=== PATIENT | female | born 1955 | race Caucasian/White ===

== ENCOUNTER 2017-05-18 10:22 | Emergency (ER) | payer MEDICARE, MEDICAID ==
[~2017-05-18] VITALS: Ht 152.4 cm; Wt 84.0 kg
[2017-05-18] MEDS ORDERED: HYDROcodone/acetaminophen 10/325mg tab PO ONE (13:20)
[2017-05-18] MEDS ORDERED: morphine 4 MG/ML inj SYRINge IV ONE (13:25)
[2017-05-18] MEDS ORDERED: normal saline 1000ML IV soln IVB ONE (13:25)
[2017-05-18] MEDS ORDERED: ondansetron/PF 4mg/2ml inj IV ONE (13:25)
[2017-05-18 14:26] VITALS: BP 101/65
== END 2017-05-18 14:31 | disposition home or self-care (01) ==
LOC: ER 10:23
DX: S70.01XA Contusion of right hip, initial encounter (principal); M16.11 Unilateral primary osteoarthritis, right hip; Z59.0 Homelessness; Z60.2 Problems related to living alone; Z56.0 Unemployment, unspecified; Z88.0 Allergy status to penicillin; Z88.5 Allergy status to narcotic agent; W18.30XA Fall on same level, unspecified, initial encounter; Y93.89 Activity, other specified; Y92.89 Other specified places as the place of occurrence of the external cause; Y99.8 Other external cause status
CPT/HCPCS: 73502; 73564; 73700; 99284

== ENCOUNTER 2017-06-02 15:16 | Emergency (ER) | payer MEDICARE, MEDICAID ==
[~2017-06-02] VITALS: Ht 152.4 cm; Wt 79.3 kg
[2017-06-02 16:01] LABS: BASOPHILS # (AUTO) 0.1 X10'3 (0-0.2); BASOPHILS % (AUTO) 0.6 % (0-1); EOSINOPHILS # (AUTO) 0.2 X10'3 (0-0.9); EOSINOPHILS % (AUTO) 1.9 % (0-6); HEMATOCRIT 35.1 % (35.0-45.0); HEMOGLOBIN 12.2 g/dl (12.0-16.0); LYMPHOCYTES # (AUTO) 2.8 X10'3 (1.1-4.8); LYMPHOCYTES % (AUTO) 34.6 % (21-51); MEAN CORPUSCULAR HEMOGLOBIN 29.4 PG (27.0-31.0); MEAN CORPUSCULAR HGB CONC 34.6 % (33.0-36.5); MEAN CORPUSCULAR VOLUME 84.8 FL (78-98); MONOCYTES # (AUTO) 0.5 X10'3 (0-0.9); MONOCYTES % (AUTO) 6.3 % (2-12); NEUTROPHILS # (AUTO) 4.6 X10'3 (1.8-7.7); NEUTROPHILS % (AUTO) 56.6 % (42-75); PLATELET COUNT 246 X10'3 (140-440); RED BLOOD COUNT 4.14 X10'6 (4.20-5.60); RED CELL DISTRIBUTION WIDTH 16.8 % (11.5-14.5); WHITE BLOOD COUNT 8.1 X10'3 (4.5-11.0)
[2017-06-02 16:10] LABS: PARTIAL THROMBOPLASTIN TIME 27 SECONDS (22-32); PROTHROMBIN TIME 10.4 SECONDS (9.0-12.0)
[2017-06-02 16:19] LABS: ALANINE AMINOTRANSFERASE 13 U/L (12-78); ALBUMIN 3.5 G/DL (3.4-5.0); ALBUMIN/GLOBULIN RATIO 0.8 (1.1-1.5); ALKALINE PHOSPHATASE 98 IU/L (46-116); ANION GAP 14 (8-16); ASPARTATE AMINO TRANSFERASE 19 U/L (10-37); BILIRUBIN,TOTAL 0.5 MG/DL (0.1-1.0); BLOOD UREA NITROGEN 12 MG/DL (7-18); BUN/CREATININE RATIO 10.6 (6.6-38.0); CALCIUM 8.8 MG/DL (8.5-10.1); CHLORIDE 106 MMOL/L (99-107); CREATININE 1.13 MG/DL (0.40-0.90); GLUCOSE 118 MG/DL (70-104); POTASSIUM 3.3 MMOL/L (3.5-5.1); SODIUM 142 MMOL/L (135-145); TOTAL CARBON DIOXIDE 22.3 MMOL/L (24-32); TOTAL PROTEIN 7.9 G/DL (6.4-8.2); eGFR 49 ML/MIN
[2017-06-02 19:02] VITALS: BP 128/73
[2017-06-02] MEDS ORDERED: FLUC100T8 PO (20:07)
== END 2017-06-02 20:15 | disposition left against medical advice (07) ==
LOC: ER 15:16
DX: B37.0 Candidal stomatitis (principal); R07.89 Other chest pain; M19.90 Unspecified osteoarthritis, unspecified site; Z88.5 Allergy status to narcotic agent; Z88.0 Allergy status to penicillin; Z79.899 Other long term (current) drug therapy; Z56.0 Unemployment, unspecified; Z59.0 Homelessness; Z60.2 Problems related to living alone
CPT/HCPCS: 36415; 71045; 80053; 84484; 85025; 85610; 85730; 87081; 87880; 93005; 99285

== ENCOUNTER 2017-06-08 11:28 | Emergency (ER) | payer MEDICARE, MEDICAID ==
[~2017-06-08 11:28] MED LIST: FLUC100T8 PO
[2017-06-08] MEDS ORDERED: normal saline 1000ML IV soln IVB ONE (11:35)
[2017-06-08] MEDS ORDERED: morphine 4 MG/ML inj SYRINge IV ONE (11:35)
[2017-06-08] MEDS ORDERED: LORazepam 2 mg/ml vial IV ONE (11:35)
[2017-06-08 11:59] LABS: PROTHROMBIN TIME 10.7 SECONDS (9.0-12.0)
[2017-06-08 12:04] LABS: ALANINE AMINOTRANSFERASE 12 U/L (12-78); ALBUMIN 3.3 G/DL (3.4-5.0); ALBUMIN/GLOBULIN RATIO 0.8 (1.1-1.5); ALKALINE PHOSPHATASE 88 IU/L (46-116); ANION GAP 17 (8-16); ASPARTATE AMINO TRANSFERASE 19 U/L (10-37); BILIRUBIN,TOTAL 0.4 MG/DL (0.1-1.0); BLOOD UREA NITROGEN 6 MG/DL (7-18); BUN/CREATININE RATIO 5.6 (6.6-38.0); CALCIUM 8.6 MG/DL (8.5-10.1); CHLORIDE 105 MMOL/L (99-107); CREATININE 1.08 MG/DL (0.40-0.90); ETHANOL < 0.010 GM/DL (0.0-0.010); GLUCOSE 122 MG/DL (70-104); POTASSIUM 3.4 MMOL/L (3.5-5.1); SODIUM 142 MMOL/L (135-145); TOTAL CARBON DIOXIDE 19.9 MMOL/L (24-32); TOTAL PROTEIN 7.5 G/DL (6.4-8.2); eGFR 52 ML/MIN
[2017-06-08 12:05] LABS: BASOPHILS % (AUTO) 0.3 % (0-1); EOSINOPHILS # (AUTO) 0.1 X10'3 (0-0.9); EOSINOPHILS % (AUTO) 0.5 % (0-6); HEMATOCRIT 33.9 % (35.0-45.0); HEMOGLOBIN 11.6 g/dl (12.0-16.0); LYMPHOCYTES # (AUTO) 4.3 X10'3 (1.1-4.8); LYMPHOCYTES % (AUTO) 38.3 % (21-51); MEAN CORPUSCULAR HEMOGLOBIN 29.2 PG (27.0-31.0); MEAN CORPUSCULAR HGB CONC 34.2 % (33.0-36.5); MEAN CORPUSCULAR VOLUME 85.3 FL (78-98); MEAN PLATELET VOLUME 6.9 FL (7.4-10.4); MONOCYTES # (AUTO) 0.7 X10'3 (0-0.9); MONOCYTES % (AUTO) 6.5 % (2-12); NEUTROPHILS # (AUTO) 6.1 X10'3 (1.8-7.7); NEUTROPHILS % (AUTO) 54.4 % (42-75); PLATELET COUNT 265 X10'3 (140-440); RED BLOOD COUNT 3.98 X10'6 (4.20-5.60); RED CELL DISTRIBUTION WIDTH 16.8 % (11.5-14.5); WHITE BLOOD COUNT 11.2 X10'3 (4.5-11.0)
[2017-06-08] MEDS ORDERED: LIDOcaine 1% 30ml preserv. free vial IJ ONE (12:35)
[2017-06-08] MEDS ORDERED: TETanus/Pertussis (Acell)/Diphther VAC/PF (Tdap-Adult) 0.5ml syringe IM ONE (12:35)
[2017-06-08 12:48] LABS: CLARITY,URINE CLEAR (Clear); COLOR,URINE YELLOW (Yellow); GLUCOSE, URINE NEGATIVE (Neg); KETONES,URINE NEGATIVE (Neg); LEUKOCYTE ESTERASE ,URINE NEGATIVE (Neg); NITRITES, URINE NEGATIVE (Neg); OCCULT BLOOD,URINE NEGATIVE (Neg); PROTEIN,URINE NEGATIVE (Neg); UROBILINOGEN,URINE 0.2 E.U/dL (0.2-1.0)
[2017-06-08 12:51] LABS: URINE AMPHETAMINE SCREEN NEGATIVE (Neg); URINE BARBITUATE SCREEN NEGATIVE (Neg); URINE BENZODIAZEPINES SCREEN NEGATIVE (Neg); URINE CANNABINOID SCREEN NEGATIVE (Neg); URINE COCAINE SCREEN NEGATIVE (Neg); URINE METHADONE SCREEN NEGATIVE (Neg); URINE OPIATE SCREEN POSITIVE (Neg); URINE PHENCYCLIDINE SCREEN NEGATIVE (Neg)
[2017-06-08 12:56] LABS: UA COLLECTION TYPE NON-SPECIFIED
[2017-06-08] MEDS ORDERED: KEP500T PO (13:16)
[2017-06-08] MEDS ORDERED: CITA20TA11 PO (13:16)
[2017-06-08] MEDS ORDERED: ZOLP10TA5 PO (13:16)
[2017-06-08] MEDS ORDERED: NAPR-56 PO (13:16)
[2017-06-08] MEDS ORDERED: CARV-50 PO (13:16)
[2017-06-08] MEDS ORDERED: HYDR-3686 PO (13:16)
[2017-06-08] MEDS ORDERED: ASPI-1053 PO (13:19)
[2017-06-08] MEDS ORDERED: NITR0.4T51 SL (13:19)
[2017-06-08] MEDS ORDERED: levetiracetam inj 1,000 MG in normal saline 100ml IV soln 90 ML IV SCH (13:20)
[2017-06-08 15:48] VITALS: BP 116/90
== END 2017-06-08 15:50 | disposition home or self-care (01) ==
LOC: EDBD 11:28 → ER 11:29
DX: F07.81 Postconcussional syndrome (principal); G40.909 Epilepsy, unspecified, not intractable, without status epilepticus; S01.21XA Laceration without foreign body of nose, initial encounter; M19.90 Unspecified osteoarthritis, unspecified site; Z88.6 Allergy status to analgesic agent; Z88.0 Allergy status to penicillin; Z79.82 Long term (current) use of aspirin; W01.0XXA Fall on same level from slipping, tripping and stumbling without subsequent striking against object, initial encounter; Y93.89 Activity, other specified; Y92.89 Other specified places as the place of occurrence of the external cause; Y99.8 Other external cause status
CPT/HCPCS: 12011; 36415; 70450; 70486; 71045; 73502; 73560; 80053; 80305; 80320; 81003; 82948; 85025; 85610; 90471; 90715; 93005; 96361; 96365; 96375; 99291; A4353; A6449; J1953; J2060; J2270; J3490; J7030

== ENCOUNTER 2017-06-14 08:53 | Emergency (ER) | payer MEDICARE, MEDICAID ==
[~2017-06-14] VITALS: Ht 152.4 cm; Wt 77.0 kg
[~2017-06-14 08:53] MED LIST changes: +ASPI-1053 PO; +CARV-50 PO; +CITA20TA11 PO; -FLUC100T8 PO; +HYDR-3686 PO; +KEP500T PO; +NAPR-56 PO; +NITR0.4T51 SL; +ZOLP10TA5 PO
[2017-06-14 09:05] VITALS: BP 186/103
== END 2017-06-14 09:56 | disposition home or self-care (01) ==
LOC: ER 08:54
DX: S01.21XD Laceration without foreign body of nose, subsequent encounter (principal); Z48.02 Encounter for removal of sutures; M19.90 Unspecified osteoarthritis, unspecified site; Z88.0 Allergy status to penicillin; Z88.5 Allergy status to narcotic agent; Z79.82 Long term (current) use of aspirin; Z79.899 Other long term (current) drug therapy; Z56.0 Unemployment, unspecified; Z59.0 Homelessness; Z60.2 Problems related to living alone; W01.0XXD Fall on same level from slipping, tripping and stumbling without subsequent striking against object, subsequent encounter
CPT/HCPCS: 99284

== ENCOUNTER 2017-07-10 14:04 | Inpatient (IN) | payer MEDICARE, MEDICAID ==
[~2017-07-10] VITALS: Ht 162.6 cm; Wt 77.2 kg
[~2017-07-10 14:04] MED LIST changes: +CITA-278 PO; -CITA20TA11 PO
[2017-07-10] MEDS ORDERED: normal saline 1000ml 1,000 ML IV ONE (14:09)
[2017-07-10] MEDS ORDERED: nitroGLYCERIN 0.4mg/hour patch TD ONE (14:10)
[2017-07-10] MEDS ORDERED: normal saline 1000ML IV soln IVB ONE ×2 (14:10→14:15)
[2017-07-10] MEDS ORDERED: ondansetron/PF 4mg/2ml inj IV ONE (14:15)
[2017-07-10 14:38] LABS: BASOPHILS % (AUTO) 0.3 % (0-1); EOSINOPHILS # (AUTO) 0.2 X10'3 (0-0.9); EOSINOPHILS % (AUTO) 2.5 % (0-6); HEMATOCRIT 31.3 % (35.0-45.0); HEMOGLOBIN 10.7 g/dl (12.0-16.0); LYMPHOCYTES # (AUTO) 2.3 X10'3 (1.1-4.8); LYMPHOCYTES % (AUTO) 26.4 % (21-51); MEAN CORPUSCULAR HGB CONC 34.1 % (33.0-36.5); MEAN CORPUSCULAR VOLUME 85.2 FL (78-98); MEAN PLATELET VOLUME 6.7 FL (7.4-10.4); MONOCYTES # (AUTO) 0.6 X10'3 (0-0.9); MONOCYTES % (AUTO) 6.8 % (2-12); NEUTROPHILS # (AUTO) 5.6 X10'3 (1.8-7.7); PLATELET COUNT 296 X10'3 (140-440); RED BLOOD COUNT 3.67 X10'6 (4.20-5.60); RED CELL DISTRIBUTION WIDTH 16.4 % (11.5-14.5); WHITE BLOOD COUNT 8.7 X10'3 (4.5-11.0)
[2017-07-10 14:50] LABS: PARTIAL THROMBOPLASTIN TIME 27 SECONDS (22-32); PROTHROMBIN TIME 10.1 SECONDS (9.0-12.0)
[2017-07-10 14:55] LABS: ALANINE AMINOTRANSFERASE 13 U/L (12-78); ALBUMIN 3.1 G/DL (3.4-5.0); ALBUMIN/GLOBULIN RATIO 0.8 (1.1-1.5); ALKALINE PHOSPHATASE 114 IU/L (46-116); ANION GAP 10 (8-16); ASPARTATE AMINO TRANSFERASE 21 U/L (10-37); BILIRUBIN,TOTAL 0.4 MG/DL (0.1-1.0); BLOOD UREA NITROGEN 17 MG/DL (7-18); BUN/CREATININE RATIO 13.6 (6.6-38.0); CALCIUM 8.4 MG/DL (8.5-10.1); CHLORIDE 106 MMOL/L (99-107); CREATININE 1.25 MG/DL (0.40-0.90); GLUCOSE 110 MG/DL (70-104); POTASSIUM 3.6 MMOL/L (3.5-5.1); SODIUM 139 MMOL/L (135-145); TOTAL CARBON DIOXIDE 23.3 MMOL/L (24-32); TOTAL PROTEIN 7.2 G/DL (6.4-8.2); eGFR 44 ML/MIN
[2017-07-10 15:01] LABS: ETHANOL < 0.010 GM/DL (0.0-0.010); LIPASE 114 U/L (73-393)
[2017-07-10 15:06] LABS: CLARITY,URINE SLIGHTLY CLOUDY (Clear); COLOR,URINE YELLOW (Yellow); GLUCOSE, URINE NEGATIVE (Neg); KETONES,URINE TRACE mg/dl (Neg); LEUKOCYTE ESTERASE ,URINE SMALL (Neg); NITRITES, URINE POSITIVE (Neg); OCCULT BLOOD,URINE SMALL (Neg); PH,URINE 5.5 (4.8-8.0); PROTEIN,URINE 30 mg/dl (Neg)
[2017-07-10 15:12] LABS: UA COLLECTION TYPE CLN CATCH MIDSTREAM
[2017-07-10 15:14] LABS: AMORPHOUS URATES 1+; BACTERIA,URINE 4+ /HPF (Neg); MUCUS STRANDS FEW /LPF (Neg); RBC,URINE 0-2 /HPF (0-2); SQUAMOUS EPITHELIAL CELL,UR MODERATE /LPF (FEW)
[2017-07-10 15:15] LABS: CAL OXALATE CRYSTALS 2+ /HPF (NEGATIVE)
[2017-07-10] MEDS ORDERED: mag hydrox/Alum hydrox/simeth 30ml oral suspension PO PRN (15:30)
[2017-07-10] MEDS ORDERED: nitroGLYCERIN 0.4mg SUBLingual tab SL PRN (15:30)
[2017-07-10] MEDS ORDERED: morphine 4 MG/ML inj SYRINge IV PRN ×2 (15:30)
[2017-07-10] MEDS ORDERED: acetaminophen 325mg tablet PO PRN (15:30)
[2017-07-10] MEDS ORDERED: ondansetron/PF 4mg/2ml inj IV PRN (15:30)
[2017-07-10] MEDS ORDERED: magnesium hydroxide 30ml (MOM) UD suspension PO PRN (15:30)
[2017-07-10] MEDS: levoFLOXACIN-Levaquin 500mg/D5 100 ML IV SCH (15:47)
[2017-07-10] MEDS: normal saline 1000ml 1,000 ML IV SCH (15:48)
[2017-07-10 18:00] VITALS: BP 142/70
[2017-07-10] MEDS: carVEDilol 3.125mg tablet PO SCH (19:07)
[2017-07-10] MEDS: heparin, porcine 5000 units/ml vial SQ SCH (19:08)
[2017-07-10] MEDS ORDERED: temazepam 15mg capsule PO PRN (20:10)
[2017-07-10 23:00] VITALS: BP 152/68
[2017-07-11] MEDS: normal saline 1000ml 1,000 ML IV SCH ×2 (01:41→11:28)
[2017-07-11 03:00] VITALS: BP 146/56
[2017-07-11 03:19] LABS: BASOPHILS % (AUTO) 0.4 % (0-1); EOSINOPHILS # (AUTO) 0.3 X10'3 (0-0.9); EOSINOPHILS % (AUTO) 2.7 % (0-6); HEMATOCRIT 29.2 % (35.0-45.0); HEMOGLOBIN 9.8 g/dl (12.0-16.0); LYMPHOCYTES # (AUTO) 1.9 X10'3 (1.1-4.8); LYMPHOCYTES % (AUTO) 20.4 % (21-51); MEAN CORPUSCULAR HEMOGLOBIN 28.9 PG (27.0-31.0); MEAN CORPUSCULAR HGB CONC 33.4 % (33.0-36.5); MEAN CORPUSCULAR VOLUME 86.4 FL (78-98); MEAN PLATELET VOLUME 6.7 FL (7.4-10.4); MONOCYTES # (AUTO) 0.7 X10'3 (0-0.9); MONOCYTES % (AUTO) 7.2 % (2-12); NEUTROPHILS # (AUTO) 6.4 X10'3 (1.8-7.7); NEUTROPHILS % (AUTO) 69.3 % (42-75); PLATELET COUNT 248 X10'3 (140-440); RED BLOOD COUNT 3.38 X10'6 (4.20-5.60); RED CELL DISTRIBUTION WIDTH 16.6 % (11.5-14.5); WHITE BLOOD COUNT 9.3 X10'3 (4.5-11.0)
[2017-07-11 05:30] VITALS: BP 164/70
[2017-07-11 06:26] LABS: ALBUMIN 2.7 G/DL (3.4-5.0); ANION GAP 11 (8-16); BLOOD UREA NITROGEN 11 MG/DL (7-18); BUN/CREATININE RATIO 12.1 (6.6-38.0); CHLORIDE 107 MMOL/L (99-107); CREATININE 0.91 MG/DL (0.40-0.90); GLUCOSE 85 MG/DL (70-104); SODIUM 141 MMOL/L (135-145); TOTAL CARBON DIOXIDE 22.9 MMOL/L (24-32); eGFR 63 ML/MIN
[2017-07-11] MEDS ORDERED: aspirin 81mg tablet.DR PO SCH (08:00)
[2017-07-11] MEDS ORDERED: atorvastatin 20mg tablet PO SCH (08:00)
[2017-07-11] MEDS ORDERED: citalopram 20mg tablet PO SCH (08:20)
[2017-07-11] MEDS ORDERED: carVEDilol 12.5mg tablet PO SCH (08:20)
[2017-07-11] MEDS ORDERED: nitroGLYCERIN 0.4mg SUBLingual tab SL PRN (08:20)
[2017-07-11] MEDS: levoFLOXACIN-Levaquin 500mg/D5 100 ML IV SCH (08:26)
[2017-07-11] MEDS: carVEDilol 3.125mg tablet PO SCH (08:26)
[2017-07-11] MEDS: heparin, porcine 5000 units/ml vial SQ SCH (08:26)
[2017-07-11] MEDS ORDERED: zolpidem 5mg tablet PO PRN (08:30)
[2017-07-11] MEDS ORDERED: levetiracetam 250mg tablet PO SCH (09:00)
[2017-07-11 10:09] LABS: H PYLORI ANTIBODY NEGATIVE (Neg)
[2017-07-11 11:00] VITALS: BP 150/58
[2017-07-11] MEDS ORDERED: LEVO500T2 PO (11:31)
[2017-07-11] MEDS ORDERED: MUPI22OI30 TOP (11:31)
[2017-07-11] MEDS ORDERED: PANT-47 PO (11:33)
[2017-07-11] MEDS ORDERED: hydrOXYzine 25 MG tablet PO SCH (20:00)
[2017-07-12] MEDS ORDERED: aspirin 81mg tab.chew PO SCH (08:00)
== END 2017-07-11 13:05 | disposition home or self-care (01) | DRG 391 ==
LOC: ER 14:04 → ED HOLD 15:28 → PCU 3S 17:25
PROVIDERS: ADMIT Family Medicine; ATTEND Family Medicine
DX: K29.70 Gastritis, unspecified, without bleeding (principal); E43 Unspecified severe protein-calorie malnutrition; N17.9 Acute kidney failure, unspecified; N39.0 Urinary tract infection, site not specified; D64.9 Anemia, unspecified; E86.0 Dehydration; M19.90 Unspecified osteoarthritis, unspecified site; F32.9 Major depressive disorder, single episode, unspecified; G40.909 Epilepsy, unspecified, not intractable, without status epilepticus; I12.9 Hypertensive chronic kidney disease with stage 1 through stage 4 chronic kidney disease, or unspecified chronic kidney disease; I25.10 Atherosclerotic heart disease of native coronary artery without angina pectoris; J44.9 Chronic obstructive pulmonary disease, unspecified; L01.00 Impetigo, unspecified; Z90.710 Acquired absence of both cervix and uterus; I25.2 Old myocardial infarction; Z95.0 Presence of cardiac pacemaker; Z59.0 Homelessness; Z88.0 Allergy status to penicillin; Z88.5 Allergy status to narcotic agent; N18.3 Chronic kidney disease, stage 3 (moderate)
CPT/HCPCS: 36415; 71045; 80048; 80053; 80320; 81001; 83690; 83735; 83880; 84484; 85025; 85610; 85730; 86677; 87070; 87077; 87088; 87186; 93005; 93306; 96361; 96374; 99285; J1644; J1956; J2270; J2405; J7030

== ENCOUNTER 2017-08-31 11:46 | Emergency (ER) | payer MEDICARE, MEDICAID ==
[~2017-08-31] VITALS: Ht 162.6 cm; Wt 75.0 kg
[~2017-08-31 11:46] MED LIST changes: -NAPR-56 PO; +PANT-47 PO
[2017-08-31] MEDS ORDERED: nitroGLYCERIN 0.4mg SUBLingual tab SL PRN (11:55)
[2017-08-31] MEDS ORDERED: morphine 4 MG/ML inj SYRINge IV ONE (11:55)
[2017-08-31 12:13] LABS: BASOPHILS # (AUTO) 0.1 X10'3 (0-0.2); BASOPHILS % (AUTO) 0.7 % (0-1); EOSINOPHILS # (AUTO) 0.4 X10'3 (0-0.9); EOSINOPHILS % (AUTO) 4.1 % (0-6); HEMATOCRIT 30.6 % (35.0-45.0); HEMOGLOBIN 10.3 g/dl (12.0-16.0); LYMPHOCYTES % (AUTO) 20.7 % (21-51); MEAN CORPUSCULAR HEMOGLOBIN 28.5 PG (27.0-31.0); MEAN CORPUSCULAR HGB CONC 33.6 % (33.0-36.5); MEAN PLATELET VOLUME 6.6 FL (7.4-10.4); MONOCYTES # (AUTO) 0.5 X10'3 (0-0.9); MONOCYTES % (AUTO) 5.6 % (2-12); NEUTROPHILS # (AUTO) 6.6 X10'3 (1.8-7.7); NEUTROPHILS % (AUTO) 68.9 % (42-75); PLATELET COUNT 373 X10'3 (140-440); RED CELL DISTRIBUTION WIDTH 14.5 % (11.5-14.5); WHITE BLOOD COUNT 9.6 X10'3 (4.5-11.0)
[2017-08-31 12:31] LABS: ALANINE AMINOTRANSFERASE 16 U/L (12-78); ALBUMIN/GLOBULIN RATIO 0.7 (1.1-1.5); ALKALINE PHOSPHATASE 106 IU/L (46-116); ANION GAP 7 (8-16); ASPARTATE AMINO TRANSFERASE 23 U/L (10-37); BILIRUBIN,TOTAL 0.4 MG/DL (0.1-1.0); BLOOD UREA NITROGEN 9 MG/DL (7-18); BUN/CREATININE RATIO 8.3 (6.6-38.0); CALCIUM 8.7 MG/DL (8.5-10.1); CHLORIDE 103 MMOL/L (99-107); CREATININE 1.09 MG/DL (0.40-0.90); GLUCOSE 96 MG/DL (70-104); POTASSIUM 3.7 MMOL/L (3.5-5.1); SODIUM 135 MMOL/L (135-145); TOTAL CARBON DIOXIDE 24.8 MMOL/L (24-32); TOTAL PROTEIN 7.4 G/DL (6.4-8.2); eGFR 51 ML/MIN
[2017-08-31 12:38] LABS: CREATINE KINASE 20 U/L (26-192)
[2017-08-31 13:35] VITALS: BP 131/69
== END 2017-08-31 14:00 | disposition home or self-care (01) ==
LOC: ER 11:46
DX: G40.909 Epilepsy, unspecified, not intractable, without status epilepticus (principal); R07.9 Chest pain, unspecified; M25.551 Pain in right hip; M16.11 Unilateral primary osteoarthritis, right hip; I10 Essential (primary) hypertension; J44.9 Chronic obstructive pulmonary disease, unspecified; M19.90 Unspecified osteoarthritis, unspecified site; I25.2 Old myocardial infarction; I25.10 Atherosclerotic heart disease of native coronary artery without angina pectoris; Z95.0 Presence of cardiac pacemaker; Z88.0 Allergy status to penicillin; Z88.5 Allergy status to narcotic agent; Z79.82 Long term (current) use of aspirin; Z79.899 Other long term (current) drug therapy; Z56.0 Unemployment, unspecified; Z60.2 Problems related to living alone
CPT/HCPCS: 36415; 71045; 72170; 73502; 80053; 82550; 83880; 84484; 85025; 93005; 96374; 99285; J2270

== ENCOUNTER 2017-10-28 16:27 | Inpatient (IN) | payer MEDICARE, MEDICAID ==
[~2017-10-28] VITALS: Ht 152.4 cm; Wt 65.0 kg
[2017-10-28 16:53] LABS: BASOPHILS % (AUTO) 0.2 % (0-1); EOSINOPHILS # (AUTO) 0.3 X10'3 (0-0.9); EOSINOPHILS % (AUTO) 3.6 % (0-6); HEMATOCRIT 32.1 % (35.0-45.0); HEMOGLOBIN 10.6 g/dl (12.0-16.0); LYMPHOCYTES # (AUTO) 1.5 X10'3 (1.1-4.8); LYMPHOCYTES % (AUTO) 18.6 % (21-51); MEAN CORPUSCULAR HEMOGLOBIN 27.6 PG (27.0-31.0); MEAN CORPUSCULAR HGB CONC 33.1 % (33.0-36.5); MEAN CORPUSCULAR VOLUME 83.4 FL (78-98); MEAN PLATELET VOLUME 6.8 FL (7.4-10.4); MONOCYTES # (AUTO) 0.5 X10'3 (0-0.9); MONOCYTES % (AUTO) 5.8 % (2-12); NEUTROPHILS # (AUTO) 5.7 X10'3 (1.8-7.7); NEUTROPHILS % (AUTO) 71.8 % (42-75); PLATELET COUNT 285 X10'3 (140-440); RED BLOOD COUNT 3.85 X10'6 (4.20-5.60); RED CELL DISTRIBUTION WIDTH 15.7 % (11.5-14.5)
[2017-10-28 17:41] LABS: PARTIAL THROMBOPLASTIN TIME 26 SECONDS (22-32); PROTHROMBIN TIME 10.7 SECONDS (9.0-12.0)
[2017-10-28 17:46] LABS: ALANINE AMINOTRANSFERASE 7 U/L (12-78); ALBUMIN 2.8 G/DL (3.4-5.0); ALBUMIN/GLOBULIN RATIO 0.7 (1.1-1.5); ALKALINE PHOSPHATASE 96 IU/L (46-116); ANION GAP 15 (8-16); ASPARTATE AMINO TRANSFERASE 13 U/L (10-37); BILIRUBIN,TOTAL 0.5 MG/DL (0.1-1.0); BLOOD UREA NITROGEN 8 MG/DL (7-18); CALCIUM 8.1 MG/DL (8.5-10.1); CHLORIDE 100 MMOL/L (99-107); CREATININE 1.14 MG/DL (0.40-0.90); GLUCOSE 106 MG/DL (70-104); SODIUM 136 MMOL/L (135-145); TOTAL CARBON DIOXIDE 20.9 MMOL/L (24-32); eGFR 49 ML/MIN
[2017-10-28 17:51] LABS: POTASSIUM 2.5 MMOL/L (3.5-5.1)
[2017-10-28] MEDS ORDERED: normal saline 1000ML IV soln IVB ONE (18:10)
[2017-10-28] MEDS ORDERED: morphine 4 MG/ML inj SYRINge IV PRN (18:10)
[2017-10-28] MEDS ORDERED: ondansetron/PF 4mg/2ml inj IV ONE (18:10)
[2017-10-28] MEDS: potassium 10mEq/100ml NS w/LIDOcaine (10mg/bag) IV SCH ×2 (18:28→19:46)
[2017-10-28] MEDS ORDERED: DIPH25CA83 PO (18:38)
[2017-10-28] MEDS ORDERED: NYST1000 PO (18:45)
[2017-10-28] MEDS ORDERED: HYDROmorphone 1 mg/ml syringe IV PRN ×2 (19:50)
[2017-10-28] MEDS ORDERED: potassium Cl 40MEQ/NS 500ml 500 ML IV PRN ×2 (19:50)
[2017-10-28] MEDS ORDERED: diphenhydrAMINE 25mg capsule PO PRN (19:50)
[2017-10-28] MEDS ORDERED: metoclopramide 5 mg/ml inj IV PRN (19:50)
[2017-10-28] MEDS ORDERED: magnesium hydroxide 30ml (MOM) UD suspension PO PRN (19:50)
[2017-10-28] MEDS ORDERED: mag hydrox/Alum hydrox/simeth 30ml oral suspension PO PRN (19:50)
[2017-10-28] MEDS ORDERED: bisacodyl 10mg suppository rectal RC PRN (19:50)
[2017-10-28] MEDS ORDERED: HYDROcodone/acetaminophen 5mg/325mg tablet PO PRN (19:50)
[2017-10-28] MEDS ORDERED: diphenhydrAMINE 50 mg/ml inj IV PRN (19:50)
[2017-10-28] MEDS ORDERED: acetaminophen 650mg rectal suppository RC PRN (19:50)
[2017-10-28] MEDS ORDERED: morphine 2 MG/ML inj. syringe IV PRN (19:50)
[2017-10-28] MEDS ORDERED: nitroGLYCERIN 0.4mg SUBLingual tab SL PRN ×2 (19:50→19:55)
[2017-10-28] MEDS ORDERED: acetaminophen 325mg tablet PO PRN ×2 (19:50)
[2017-10-28] MEDS ORDERED: potassium Cl 20 mEq SR tablet PO PRN (19:50)
[2017-10-28] MEDS ORDERED: metoprolol tartrate 1mg/ml inj IV PRN (19:55)
[2017-10-28] MEDS ORDERED: regadenoson 0.4mg/5ml syringe IV PRN (19:55)
[2017-10-28] MEDS ORDERED: CAFFEINE CITRATE 60 MG/3 ML injection vial IV PRN (19:55)
[2017-10-28] MEDS ORDERED: non-formulary drug (Levetiracetam (Keppra) 1 TAB) PO SCH (20:00)
[2017-10-28] MEDS: docusate sod 100mg capsule PO SCH (20:00)
[2017-10-28 20:05] LABS: D-DIMER 0.57 MG/L FEU (0-0.50)
[2017-10-28 20:13] LABS: HEMOGLOBIN A1C 5.4 % (4.5-6.2)
[2017-10-28 20:22] LABS: CREATINE KINASE 23 U/L (26-192); LIPASE 75 U/L (73-393); MAGNESIUM 1.7 MG/DL (1.5-2.4); PHOSPHORUS 3.5 MG/DL (2.3-4.5)
[2017-10-28] MEDS ORDERED: levetiracetam 250mg tablet PO ONE (20:35)
[2017-10-28] MEDS: heparin, porcine 5000 units/ml vial SQ SCH (20:44)
[2017-10-28] MEDS: famotidine 20mg tablet PO SCH (20:45)
[2017-10-28] MEDS: hydrOXYzine 25 MG tablet PO SCH (20:45)
[2017-10-28 21:00] VITALS: BP 147/64
[2017-10-28] MEDS ORDERED: temazepam 15mg capsule PO PRN (21:00)
[2017-10-28] MEDS ORDERED: lidocaine viscous (21:55)
[2017-10-28] MEDS: potassium Cl 20mEq in NS 1,000 ML IV SCH (22:48)
[2017-10-28] MEDS: diphenhydrAMINE 25mg capsule PO SCH (22:48)
[2017-10-29] VITALS (10 sets, daily range): BP systolic 106–142; BP diastolic 49–73
[2017-10-29] MEDS: morphine 2 MG/ML inj. syringe IV PRN ×2 (01:03→05:35)
[2017-10-29] MEDS: potassium Cl 20mEq in NS 1,000 ML IV SCH ×2 (05:50→15:24)
[2017-10-29 07:31] LABS: BASOPHILS % (AUTO) 0.5 % (0-1); EOSINOPHILS # (AUTO) 0.2 X10'3 (0-0.9); EOSINOPHILS % (AUTO) 2.7 % (0-6); HEMATOCRIT 30.4 % (35.0-45.0); HEMOGLOBIN 10.2 g/dl (12.0-16.0); LYMPHOCYTES # (AUTO) 1.4 X10'3 (1.1-4.8); LYMPHOCYTES % (AUTO) 22.5 % (21-51); MEAN CORPUSCULAR HGB CONC 33.5 % (33.0-36.5); MEAN CORPUSCULAR VOLUME 83.4 FL (78-98); MEAN PLATELET VOLUME 7.1 FL (7.4-10.4); MONOCYTES # (AUTO) 0.6 X10'3 (0-0.9); MONOCYTES % (AUTO) 9.1 % (2-12); NEUTROPHILS # (AUTO) 4.1 X10'3 (1.8-7.7); NEUTROPHILS % (AUTO) 65.2 % (42-75); PLATELET COUNT 224 X10'3 (140-440); RED BLOOD COUNT 3.64 X10'6 (4.20-5.60); RED CELL DISTRIBUTION WIDTH 15.9 % (11.5-14.5); WHITE BLOOD COUNT 6.3 X10'3 (4.5-11.0)
[2017-10-29] MEDS: K and/or MAG REPLACEMENT MC SCH (08:00)
[2017-10-29] MEDS: nitroGLYCERIN 0.1mg/hour patch TD SCH (08:00)
[2017-10-29 08:05] LABS: ALANINE AMINOTRANSFERASE 6 U/L (12-78); ALBUMIN 2.5 G/DL (3.4-5.0); ALBUMIN/GLOBULIN RATIO 0.7 (1.1-1.5); ALKALINE PHOSPHATASE 89 IU/L (46-116); ANION GAP 11 (8-16); ASPARTATE AMINO TRANSFERASE 17 U/L (10-37); BILIRUBIN,TOTAL 0.4 MG/DL (0.1-1.0); BLOOD UREA NITROGEN 7 MG/DL (7-18); BUN/CREATININE RATIO 7.1 (6.6-38.0); CALCIUM 7.6 MG/DL (8.5-10.1); CHLORIDE 105 MMOL/L (99-107); CHOLESTEROL 131 MG/DL (0-200); CREATININE 0.99 MG/DL (0.40-0.90); GLUCOSE 79 MG/DL (70-104); HDL CHOLESTEROL 26 MG/DL (35-60); LDL CHOLESTEROL 75 MG/DL (50-100); SODIUM 140 MMOL/L (135-145); TOTAL CARBON DIOXIDE 23.8 MMOL/L (24-32); TOTAL PROTEIN 6.3 G/DL (6.4-8.2); TRIGLYCERIDES 154 MG/DL (20-135); eGFR 57 ML/MIN
[2017-10-29] MEDS: heparin, porcine 5000 units/ml vial SQ SCH ×2 (08:19→20:44)
[2017-10-29] MEDS: docusate sod 100mg capsule PO SCH ×2 (08:20→20:00)
[2017-10-29] MEDS: citalopram 20mg tablet PO SCH (08:20)
[2017-10-29] MEDS: ondansetron/PF 4mg/2ml inj IV PRN ×2 (08:20→14:58)
[2017-10-29] MEDS: potassium Cl 20 mEq SR tablet PO PRN ×3 (08:21→20:56)
[2017-10-29] MEDS: aspirin 81mg tab.chew PO SCH (08:21)
[2017-10-29] MEDS: levetiracetam 250mg tablet PO SCH ×2 (08:21→20:44)
[2017-10-29] MEDS: hydrOXYzine 25 MG tablet PO SCH ×2 (08:22→20:45)
[2017-10-29] MEDS: famotidine 20mg tablet PO SCH ×2 (08:22→20:45)
[2017-10-29] MEDS ORDERED: regadenoson 0.4mg/5ml syringe IV ONE (12:00)
[2017-10-29] MEDS: carvedilol 6.25mg tablet PO SCH (15:24)
[2017-10-29] MEDS: HYDROcodone/acetaminophen 10/325mg tab PO PRN ×2 (15:29→20:45)
[2017-10-29] MEDS: diphenhydrAMINE 25mg capsule PO SCH (20:46)
[2017-10-30] MEDS: potassium Cl 20mEq in NS 1,000 ML IV SCH ×2 (01:50→11:50)
[2017-10-30 01:56] LABS: ALANINE AMINOTRANSFERASE 8 U/L (12-78); ALBUMIN 2.3 G/DL (3.4-5.0); ALBUMIN/GLOBULIN RATIO 0.6 (1.1-1.5); ALKALINE PHOSPHATASE 86 IU/L (46-116); ANION GAP 10 (8-16); ASPARTATE AMINO TRANSFERASE 20 U/L (10-37); BILIRUBIN,TOTAL 0.3 MG/DL (0.1-1.0); BLOOD UREA NITROGEN 10 MG/DL (7-18); BUN/CREATININE RATIO 9.8 (6.6-38.0); CALCIUM 7.4 MG/DL (8.5-10.1); CHLORIDE 106 MMOL/L (99-107); CREATININE 1.02 MG/DL (0.40-0.90); GLUCOSE 85 MG/DL (70-104); POTASSIUM 4.3 MMOL/L (3.5-5.1); SODIUM 140 MMOL/L (135-145); TOTAL CARBON DIOXIDE 24.1 MMOL/L (24-32); eGFR 55 ML/MIN
[2017-10-30 02:19] LABS: BASOPHILS % (AUTO) 0.1 % (0-1); EOSINOPHILS # (AUTO) 0.3 X10'3 (0-0.9); EOSINOPHILS % (AUTO) 4.9 % (0-6); HEMATOCRIT 30.2 % (35.0-45.0); HEMOGLOBIN 9.9 g/dl (12.0-16.0); LYMPHOCYTES # (AUTO) 1.5 X10'3 (1.1-4.8); LYMPHOCYTES % (AUTO) 26.9 % (21-51); MEAN CORPUSCULAR HEMOGLOBIN 27.6 PG (27.0-31.0); MEAN CORPUSCULAR HGB CONC 32.7 % (33.0-36.5); MEAN CORPUSCULAR VOLUME 84.4 FL (78-98); MEAN PLATELET VOLUME 7.3 FL (7.4-10.4); MONOCYTES # (AUTO) 0.4 X10'3 (0-0.9); MONOCYTES % (AUTO) 8.1 % (2-12); NEUTROPHILS # (AUTO) 3.3 X10'3 (1.8-7.7); PLATELET COUNT 254 X10'3 (140-440); RED BLOOD COUNT 3.58 X10'6 (4.20-5.60); WHITE BLOOD COUNT 5.5 X10'3 (4.5-11.0)
[2017-10-30 02:21] LABS: CLARITY,URINE CLEAR (Clear); COLOR,URINE YELLOW (Yellow); GLUCOSE, URINE NEGATIVE (Neg); KETONES,URINE NEGATIVE (Neg); LEUKOCYTE ESTERASE ,URINE NEGATIVE (Neg); NITRITES, URINE NEGATIVE (Neg); OCCULT BLOOD,URINE NEGATIVE (Neg); PROTEIN,URINE NEGATIVE (Neg); UROBILINOGEN,URINE 0.2 E.U/dL (0.2-1.0)
[2017-10-30 02:22] LABS: UA COLLECTION TYPE CLN CATCH MIDSTREAM
[2017-10-30 06:00] VITALS: BP 145/53
[2017-10-30] MEDS: docusate sod 100mg capsule PO SCH (07:29)
[2017-10-30] MEDS: aspirin 81mg tab.chew PO SCH (07:29)
[2017-10-30] MEDS: carvedilol 6.25mg tablet PO SCH (07:29)
[2017-10-30] MEDS: levetiracetam 250mg tablet PO SCH (07:29)
[2017-10-30] MEDS: hydrOXYzine 25 MG tablet PO SCH (07:29)
[2017-10-30] MEDS: citalopram 20mg tablet PO SCH (07:29)
[2017-10-30] MEDS: famotidine 20mg tablet PO SCH (07:29)
[2017-10-30] MEDS: heparin, porcine 5000 units/ml vial SQ SCH (07:30)
[2017-10-30] MEDS: nitroGLYCERIN 0.1mg/hour patch TD SCH (07:33)
[2017-10-30] MEDS: K and/or MAG REPLACEMENT MC SCH (08:00)
[2017-10-30] MEDS: lactose-reduced food (Ensure Enlive) - 237ml bottle PO SCH ×2 (08:00→13:10)
[2017-10-30 10:30] VITALS: BP 108/47
[2017-10-30] MEDS: ondansetron/PF 4mg/2ml inj IV PRN (12:47)
== END 2017-10-30 14:22 | disposition home or self-care (01) | DRG 682 ==
LOC: ER 16:28 → ED HOLD 19:50 → ORTHO 4S 21:07
PROVIDERS: ADMIT Family Medicine; ATTEND Family Medicine
PROC: 4A02XM4 Measurement of Cardiac Total Activity, External Approach (ICD-10-PCS; principal; 2017-10-29)
PROC: 3E033HZ Introduction of Radioactive Substance into Peripheral Vein, Percutaneous Approach (ICD-10-PCS; 2017-10-29)
DX: N17.9 Acute kidney failure, unspecified (principal); E43 Unspecified severe protein-calorie malnutrition; A08.4 Viral intestinal infection, unspecified; R07.89 Other chest pain; E86.1 Hypovolemia; E87.6 Hypokalemia; I10 Essential (primary) hypertension; Z60.2 Problems related to living alone; I25.10 Atherosclerotic heart disease of native coronary artery without angina pectoris; J44.9 Chronic obstructive pulmonary disease, unspecified; K82.8 Other specified diseases of gallbladder; M19.90 Unspecified osteoarthritis, unspecified site; R19.7 Diarrhea, unspecified; I25.2 Old myocardial infarction; Z79.899 Other long term (current) drug therapy; Z88.5 Allergy status to narcotic agent; Z88.0 Allergy status to penicillin; Z88.2 Allergy status to sulfonamides; Z91.012 Allergy to eggs; Z68.28 Body mass index [BMI] 28.0-28.9, adult
CPT/HCPCS: 36415; 71045; 74176; 76700; 78452; 80053; 80061; 81003; 82550; 83036; 83690; 83735; 83880; 84100; 84443; 84484; 85025; 85379; 85610; 85730; 87070; 93005; 93017; 99285; A9500; G0378; J1644; J2270; J2405; J2765; J3480; J7030; Q0163; Q0177

== ENCOUNTER 2017-11-04 13:38 | Emergency (ER) | payer MEDICARE, MEDICAID ==
[~2017-11-04] VITALS: Ht 152.4 cm; Wt 65.9 kg
[~2017-11-04 13:38] MED LIST changes: +DIPH25CA83 PO; +NYST1000 PO; -PANT-47 PO; -ZOLP10TA5 PO; +lidocaine viscous
[2017-11-04] MEDS ORDERED: aspirin 81mg tab.chew PO ONE (14:05)
[2017-11-04] MEDS ORDERED: nitroGLYCERIN 0.4mg SUBLingual tab SL PRN (14:05)
[2017-11-04 14:23] LABS: BASOPHILS % (AUTO) 0.5 % (0-1); EOSINOPHILS # (AUTO) 0.2 X10'3 (0-0.9); EOSINOPHILS % (AUTO) 2.3 % (0-6); HEMATOCRIT 32.9 % (35.0-45.0); LYMPHOCYTES # (AUTO) 1.4 X10'3 (1.1-4.8); LYMPHOCYTES % (AUTO) 16.7 % (21-51); MEAN CORPUSCULAR HEMOGLOBIN 27.9 PG (27.0-31.0); MEAN CORPUSCULAR HGB CONC 33.4 % (33.0-36.5); MEAN CORPUSCULAR VOLUME 83.5 FL (78-98); MEAN PLATELET VOLUME 6.4 FL (7.4-10.4); MONOCYTES # (AUTO) 0.6 X10'3 (0-0.9); MONOCYTES % (AUTO) 7.4 % (2-12); NEUTROPHILS % (AUTO) 73.1 % (42-75); PLATELET COUNT 323 X10'3 (140-440); RED BLOOD COUNT 3.94 X10'6 (4.20-5.60); RED CELL DISTRIBUTION WIDTH 16.4 % (11.5-14.5); WHITE BLOOD COUNT 8.3 X10'3 (4.5-11.0)
[2017-11-04 14:34] LABS: PARTIAL THROMBOPLASTIN TIME 28 SECONDS (22-32); PROTHROMBIN TIME 10.5 SECONDS (9.0-12.0)
[2017-11-04 14:38] LABS: ALANINE AMINOTRANSFERASE 11 U/L (12-78); ALBUMIN 2.8 G/DL (3.4-5.0); ALBUMIN/GLOBULIN RATIO 0.7 (1.1-1.5); ALKALINE PHOSPHATASE 103 IU/L (46-116); ANION GAP 16 (8-16); ASPARTATE AMINO TRANSFERASE 24 U/L (10-37); BILIRUBIN,TOTAL 0.5 MG/DL (0.1-1.0); BLOOD UREA NITROGEN 9 MG/DL (7-18); BUN/CREATININE RATIO 7.6 (6.6-38.0); CALCIUM 8.4 MG/DL (8.5-10.1); CHLORIDE 100 MMOL/L (99-107); CREATININE 1.18 MG/DL (0.40-0.90); GLUCOSE 117 MG/DL (70-104); POTASSIUM 3.2 MMOL/L (3.5-5.1); SODIUM 137 MMOL/L (135-145); TOTAL CARBON DIOXIDE 21.3 MMOL/L (24-32); eGFR 47 ML/MIN
[2017-11-04 14:46] LABS: URINE HCG NEGATIVE (NEG)
[2017-11-04 14:52] LABS: CLARITY,URINE CLEAR (Clear); COLOR,URINE YELLOW (Yellow); GLUCOSE, URINE NEGATIVE (Neg); KETONES,URINE TRACE mg/dl (Neg); LEUKOCYTE ESTERASE ,URINE SMALL (Neg); NITRITES, URINE NEGATIVE (Neg); OCCULT BLOOD,URINE NEGATIVE (Neg); PROTEIN,URINE TRACE mg/dl (Neg)
[2017-11-04 14:53] LABS: UA COLLECTION TYPE CLN CATCH MIDSTREAM
[2017-11-04] MEDS ORDERED: potassium Cl 20 mEq SR tablet PO STA (14:55)
[2017-11-04] MEDS ORDERED: ONDA4TAB9 PO (15:04)
[2017-11-04 15:09] LABS: BACTERIA,URINE 1+ /HPF (Neg); MUCUS STRANDS NONE SEEN /LPF (Neg); RBC,URINE NONE SEEN /HPF (0-2); SQUAMOUS EPITHELIAL CELL,UR MANY /LPF (FEW); WBC,URINE 0-4 /HPF (0-4)
[2017-11-04 15:44] VITALS: BP 133/88
[2017-11-04 15:47] LABS: D-DIMER 0.56 MG/L FEU (0-0.50)
== END 2017-11-04 16:16 | disposition home or self-care (01) ==
LOC: ER 13:38
DX: E87.6 Hypokalemia (principal); R07.89 Other chest pain; I25.10 Atherosclerotic heart disease of native coronary artery without angina pectoris; I10 Essential (primary) hypertension; I25.2 Old myocardial infarction; J44.9 Chronic obstructive pulmonary disease, unspecified; M19.90 Unspecified osteoarthritis, unspecified site; Z56.0 Unemployment, unspecified; Z95.0 Presence of cardiac pacemaker; Z88.2 Allergy status to sulfonamides; Z88.0 Allergy status to penicillin; Z88.5 Allergy status to narcotic agent; Z91.012 Allergy to eggs; Z79.899 Other long term (current) drug therapy; Z79.82 Long term (current) use of aspirin; Z95.5 Presence of coronary angioplasty implant and graft
CPT/HCPCS: 36415; 71045; 80053; 81001; 81025; 84484; 85025; 85379; 85610; 85730; 93005; 99285

== ENCOUNTER 2017-11-30 09:41 | Emergency (ER) | payer MEDICARE, MEDICAID ==
[~2017-11-30] VITALS: Ht 152.4 cm; Wt 52.6 kg
[~2017-11-30 09:41] MED LIST changes: -ASPI-1053 PO; -DIPH25CA83 PO; -NYST1000 PO; +ONDA4TAB9 PO; -lidocaine viscous
[2017-11-30 10:30] LABS: BASOPHILS % (AUTO) 0.2 % (0-1); EOSINOPHILS # (AUTO) 0.1 X10'3 (0-0.9); EOSINOPHILS % (AUTO) 0.8 % (0-6); HEMATOCRIT 34.1 % (35.0-45.0); HEMOGLOBIN 11.3 g/dl (12.0-16.0); LYMPHOCYTES % (AUTO) 8.6 % (21-51); MEAN CORPUSCULAR HEMOGLOBIN 27.9 PG (27.0-31.0); MEAN CORPUSCULAR HGB CONC 33.2 % (33.0-36.5); MEAN CORPUSCULAR VOLUME 84.2 FL (78-98); MEAN PLATELET VOLUME 6.8 FL (7.4-10.4); MONOCYTES # (AUTO) 0.5 X10'3 (0-0.9); MONOCYTES % (AUTO) 4.4 % (2-12); NEUTROPHILS # (AUTO) 9.5 X10'3 (1.8-7.7); PLATELET COUNT 297 X10'3 (140-440); RED BLOOD COUNT 4.05 X10'6 (4.20-5.60); RED CELL DISTRIBUTION WIDTH 16.9 % (11.5-14.5); WHITE BLOOD COUNT 11.1 X10'3 (4.5-11.0)
[2017-11-30 10:35] LABS: ALANINE AMINOTRANSFERASE 8 U/L (12-78); ALBUMIN 2.8 G/DL (3.4-5.0); ALBUMIN/GLOBULIN RATIO 0.6 (1.1-1.5); ALKALINE PHOSPHATASE 97 IU/L (46-116); ANION GAP 15 (8-16); ASPARTATE AMINO TRANSFERASE 25 U/L (10-37); BILIRUBIN,TOTAL 0.7 MG/DL (0.1-1.0); BLOOD UREA NITROGEN 11 MG/DL (7-18); BUN/CREATININE RATIO 7.1 (6.6-38.0); CALCIUM 8.7 MG/DL (8.5-10.1); CHLORIDE 98 MMOL/L (99-107); CREATININE 1.56 MG/DL (0.40-0.90); GLUCOSE 131 MG/DL (70-104); POTASSIUM 3.3 MMOL/L (3.5-5.1); SODIUM 136 MMOL/L (135-145); TOTAL PROTEIN 7.2 G/DL (6.4-8.2); eGFR 34 ML/MIN
[2017-11-30 10:40] LABS: INR 1.1 INR; PARTIAL THROMBOPLASTIN TIME 29 SECONDS (22-32); PROTHROMBIN TIME 10.9 SECONDS (9.0-12.0)
[2017-11-30 12:19] VITALS: BP 169/86
[2017-11-30] MEDS ORDERED: ondansetron/PF 4mg/2ml inj IV ONE (12:20)
[2017-11-30] MEDS ORDERED: ONDA4TAB9 SL (12:21)
== END 2017-11-30 12:40 | disposition home or self-care (01) ==
LOC: ER 09:41
DX: R07.89 Other chest pain (principal); R56.9 Unspecified convulsions; R10.11 Right upper quadrant pain; R11.2 Nausea with vomiting, unspecified; I25.10 Atherosclerotic heart disease of native coronary artery without angina pectoris; I10 Essential (primary) hypertension; I25.2 Old myocardial infarction; J44.9 Chronic obstructive pulmonary disease, unspecified; M19.90 Unspecified osteoarthritis, unspecified site; Z88.2 Allergy status to sulfonamides; Z88.0 Allergy status to penicillin; Z88.6 Allergy status to analgesic agent; Z91.012 Allergy to eggs; Z79.899 Other long term (current) drug therapy; Z56.0 Unemployment, unspecified; Z60.2 Problems related to living alone; Z95.0 Presence of cardiac pacemaker
CPT/HCPCS: 36415; 70450; 71045; 76700; 80053; 84484; 85025; 85610; 85730; 93005; 96374; 99285; J2405